=== PATIENT | female | born 1930 | race Asian ===

== ENCOUNTER 2019-08-02 03:47 | Inpatient (IN) | payer MEDICARE, OTHER ==
[~2019-08-02] VITALS: Ht 167.6 cm; Wt 55.6 kg
[2019-08-02] MEDS ORDERED: levoFLOXacin 750MG 150 ML IV ONE (05:45)
[2019-08-02] MEDS ORDERED: TETANUS-DIPTH-ACEL PERTUSSIS 0.5ML SYR Tdap IM ONE (06:00)
[2019-08-02] MEDS ORDERED: LIDOCAINE 2% (LOCAL ANESTH.) PF 5ml SDV ONE ×2 (06:03→06:06)
[2019-08-02] MEDS ORDERED: BACITRACIN TOP OINT 1 UD PKG TOP ONE (06:45)
[2019-08-02] MEDS ORDERED: LIDOCAINE 2%HCL (LOCAL ANESTH.) INJ 10ml MDV IJ ONE (06:45)
[2019-08-02 07:08] LABS: Basophils # (auto) 0 10 ^3/uL (0-0.2); Basophils % (auto) 0.2 % (0.0-2.0); Eosinophils # (auto) 0.1 10 ^3/uL (0-0.8); Eosinophils % (auto) 0.9 % (0.0-7.0); Hematocrit 28.5 % (36.0-46.0); Hemoglobin 9.5 g/dL (12.2-16.2); Lymphocytes # (auto) 0.3 10 ^3/uL (0.4-5.4); Lymphocytes % (auto) 2.9 % (10.0-50.0); Mean Corpuscular Hemoglobin 28.6 pg (28.0-32.0); Mean Corpuscular Hgb Conc. 33.4 g/dL (32.0-36.0); Mean Corpuscular Volume 85.8 fL (80.0-100.0); Monocytes # (auto) 0.3 10 ^3/uL (0-1.3); Neutrophils # (auto) 8.8 10 ^3/uL (1.6-8.6); Platelet Count (auto) 232 10^3/uL (140-450); Red Blood Cells 3.32 10^6/uL (4.0-5.20); Red Cell Distribution Width 16.1 % (11.8-14.3); White Blood Cell 9.5 10^3/uL (4.4-10.8)
[2019-08-02 07:17] LABS: INR 1.55 (0.9-1.15); Partial Thromboplastin Time 41.4 sec (23.64-32.05)
[2019-08-02 07:31] LABS: Calcium 7.5 mg/dL (8.5-10.1); Potassium 4.2 mmol/L (3.5-5.1)
[2019-08-02 07:33] LABS: BUN/Creatinine Ratio 32.6
[2019-08-02 07:36] LABS: Bilirubin, Total 0.2 mg/dL (0.2-1.0); Total Protein 6.7 g/dL (6.4-8.2)
[2019-08-02 08:20] LABS: Urine Bacteria NONE SEEN /hpf (None Seen); Urine Blood 1+ /uL (Negative); Urine Hyaline Cast FEW /lpf (0 - 2); Urine Mucus FEW (None Seen); Urine Specific Gravity 1.019 (1.001-1.035); Urine WBC 3 /hpf (0 - 5)
[2019-08-02] MEDS ORDERED: LACTULOSE 20Gm/30ML SOLN PO PRN (10:45)
[2019-08-02] MEDS ORDERED: cefTRIAXone 1GM/50ML D5W 50 ML IV ONE (10:45)
[2019-08-02] MEDS ORDERED: ALBUTEROL SULF 2.5 MG/0.5ML(0.5%) NEB SOLN NEB PRN (10:45)
[2019-08-02] MEDS ORDERED: phytonadione 10 MG in SODIUM CHL 0.9% 50 ML IV ONE (10:45)
[2019-08-02] MEDS ORDERED: ACETAMINOPHEN 500 MG TAB PO PRN (10:45)
[2019-08-02] MEDS ORDERED: OSELTAMIVIR 75 MG CAP PO ONE (10:45)
[2019-08-02] MEDS ORDERED: ONDANSETRON HCL 4 MG/2 ML VIAL IV PRN (10:45)
[2019-08-02] MEDS ORDERED: MORPHINE SULF INJ 2 MG/ML SYRINGE 1ML IV PRN ×2 (10:45)
[2019-08-02] MEDS ORDERED: NITROGLYCERIN 0.4 MG SL TAB SL PRN (10:45)
[2019-08-02] MEDS: SODIUM CHLORIDE 0.9% 1,000 ML IV SCH ×2 (11:15→18:41)
[2019-08-02 12:48] LABS: Free T3 1.05 pg/mL (2.3-4.2); Free T4 (Free Thyroxine) 0.59 ng/dL (0.89-1.76)
[2019-08-02 13:00] VITALS: BP 111/45
[2019-08-02] MEDS: ALBUTEROL SULF 2.5 MG/0.5ML(0.5%) NEB SOLN NEB SCH ×2 (13:12→19:11)
--- NOTE | 2019-08-02 13:15 | NUR ---
Telemetry admit from ER BHANU MCFARLANE admitted to Telemetry unit after SBAR received. Patient oriented to JUSTICE TAYLOR, RN primary RN, unit, room, bed, and unit policies regarding patient care and visiting hours. Patient now on continuous telemetry monitoring, tele box # 15 and telemetry reading on arrival to unit is SR. No S/S of distress or SOB or Pain. Bed in lowest and locked position with side rails up x2 and call light within reach. Patient weighed by bed scale and encouraged to call if they need something. All questions and concerns addressed, patient verbalized understanding.
--- NOTE | 2019-08-02 14:00 | NUR ---
PLACE OPTIFOAM ON LEFT BUTTOCK PRESSURE INJURY.
[2019-08-02 17:00] VITALS: BP 93/34
[2019-08-02 19:10] VITALS: BP 93/34
--- NOTE | 2019-08-02 19:10 | NUR ---
Received report from the Day Shift JOSELYN Brown. Initial assessment done. Pt. in bed resting with son @ the bedside. Pt. alert, awake, and oriented x 4. Pt. in Room Air, no s/s of sob/ dyspnea. Pt. denies any pain when assessed. Pt. adlib in bed and turn self, Provided privacy with son @ the bedside.
--- NOTE | 2019-08-02 19:39 | NUR ---
Pt. EKG is NSR - Nomal Sinus Rhythm @ 95/min. with BBB @ the monitor.
--- NOTE | 2019-08-02 20:00 | NUR ---
Assessment done and completed. Pt. in bed resting, with son @ the bedside. Provided pt. bedside nsg. care.
--- NOTE | 2019-08-02 20:30 | NUR ---
Assisted pt. to the BR. Pt. able to ambulate with assist to the BR. Pt. on fall precaution or high fall risk. Pt. returned to bed safely and keep warm and comfortable.
[2019-08-02] MEDS: FAMOTIDINE 20 MG TAB PO SCH (21:32)
--- NOTE | 2019-08-02 21:32 | NUR ---
Meds. as scheduled given or administered to the pt. Provided pt. health teachings about the use and indications of these meds. Pt. able to swallow or take whole pill.
[2019-08-02] MEDS: OSELTAMIVIR 30 MG CAP PO SCH (21:33)
[2019-08-02 22:20] VITALS: BP 100/39
--- NOTE | 2019-08-02 22:40 | NUR ---
Assisted pt. to the BR and returned to the bed safely with call-light within reach.
--- NOTE | 2019-08-02 22:53 | NUR ---
Lab. Personnel Sharad Garcia notified JOSELYN Rausch that pt. Blood Culture is Positive (+) for Gram Cocci in Chain. Will call the Hospital List.
[2019-08-02] MEDS ORDERED: VANCOMYCIN PER PHARMACY 0 MG IV SCH (23:15)
--- NOTE | 2019-08-02 23:15 | NUR ---
Called and notified Hospital List SENIOR CORPORATE STRATEGY MANAGER Danish Pandya about pt.' result for Blood Culture Positive (+) for Gram Cocci in Chain. ZULEIMA Pandya gave order of Vancomycin Per Pharmacy Dose.
[2019-08-03] MEDS ORDERED: VANCOMYCIN 1GM/250ML 250 ML IV ONE
--- NOTE | 2019-08-03 00:10 | NUR ---
Pt. sleeping after assisting pt. to the BR. Pt. still with IVF of NS running @ 125 mls./hr. Pt. SR with BBB @ the monitor.
--- NOTE | 2019-08-03 00:54 | NUR ---
Vancomycin Per Pharm Dose of 1 GM is given/administered IV @ this time due to Blood Culture Positive of Gram Cocci in Chains. Pt. made aware of the med. given. Pt. returned to sleep.
[2019-08-03] MEDS: ALBUTEROL SULF 2.5 MG/0.5ML(0.5%) NEB SOLN NEB SCH ×5 (01:07→23:43)
--- NOTE | 2019-08-03 02:00 | NUR ---
Pt. calm and sleeping. No s/s of acute change. IVF of NS @ 125 ml./hr continuous @ the RAC G # 20.
[2019-08-03] MEDS: SODIUM CHLORIDE 0.9% 1,000 ML IV SCH ×3 (02:42→20:15)
[2019-08-03 05:24] VITALS: BP 124/53
[2019-08-03 06:17] LABS: Basophils # (auto) 0 10 ^3/uL (0-0.2); Basophils % (auto) 0.2 % (0.0-2.0); Eosinophils # (auto) 0.1 10 ^3/uL (0-0.8); Eosinophils % (auto) 1.2 % (0.0-7.0); Hematocrit 25.9 % (36.0-46.0); Hemoglobin 8.6 g/dL (12.2-16.2); Lymphocytes # (auto) 0.6 10 ^3/uL (0.4-5.4); Lymphocytes % (auto) 11.7 % (10.0-50.0); Mean Corpuscular Hemoglobin 28.7 pg (28.0-32.0); Mean Corpuscular Hgb Conc. 33.2 g/dL (32.0-36.0); Mean Corpuscular Volume 86.4 fL (80.0-100.0); Monocytes # (auto) 0.7 10 ^3/uL (0-1.3); Monocytes % (auto) 11.9 % (0.0-12.0); Neutrophils # (auto) 4.2 10 ^3/uL (1.6-8.6); Platelet Count (auto) 208 10^3/uL (140-450); Red Cell Distribution Width 16.4 % (11.8-14.3); White Blood Cell 5.5 10^3/uL (4.4-10.8)
[2019-08-03 06:45] LABS: Albumin 1.7 g/dL (3.4-5.0); Calcium 7.6 mg/dL (8.5-10.1)
[2019-08-03 06:48] LABS: Bilirubin, Total 0.2 mg/dL (0.2-1.0)
[2019-08-03 06:49] LABS: INR 1.23 (0.9-1.15); Partial Thromboplastin Time 39.4 sec (23.64-32.05)
--- NOTE | 2019-08-03 08:00 | NUR ---
ASSESSMENT NOTE PT IS ALERT ORIENTED X4, WITH GENERALIS WEAKNESS, ABLE TO VERBALIS HER NEEDS, PT TEND TO LAY ON HER BACK AND NOT REPOSITIONING HER SELF, ASSISTED IN REPOSITIONING EVERY 2 HR AT ALL TIMES, PRESSURE ULCER NOTED AT LEFT BUTTOCK AREA, DRY SCAB NOTED ON THE RT KNEE, BED ALARM ACTIVATED, NEXT TO NURSING STATION, CALL LIGHT WITHIN REACH
[2019-08-03 08:46] VITALS: BP 115/48
[2019-08-03] MEDS: ASPirin 81 mg TAB PO SCH (09:25)
[2019-08-03] MEDS: OSELTAMIVIR 30 MG CAP PO SCH (09:25)
[2019-08-03] MEDS: cefTRIAXone 1GM/50ML D5W 50 ML IV SCH (09:25)
--- NOTE | 2019-08-03 10:00 | NUR ---
WOUND CARE NOTE: IN TO SEE PATIENT AT THIS TIME PER WOUND CARE CONSULT REQUEST. PATIENT ADMITTED TO [facility] WITH DIAGNOSIS OF S/P FALL, TIA, PNA. CURRENT TRUNG SCORE ASSESSED AT 15. PATIENT NOTED TO HAVE WOUNDS UPON ADMIT. WOUND PHOTOS TAKEN AT THAT TIME BY BEDSIDE NURSE FOR REFERENCE. PATIENT IS VERY THIN, WEIGHING ONLY 50.3 KG. PATIENT IS AMBULATORY WITH ASSIST/FALL RISK. SHE IS S/P FALL, WITH ABRASION TO RIGHT KNEE AND STAPLED LACERATION TO POSTERIOR HEAD. ABRASION TO THE R KNEE IS SCABBED CLOSED. LEFT BOTH OPEN TO AIR. 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 WOUND BED HAS YELLOW ADIPOSE TISSUE NOTED, WITH BRIGHT RED/PINK PERIWOUND. APPLIED THERAHONEY AND OPTIFOAM GENTLE SACRAL DRESSING TO WOUND. SPECIALTY AIR MATTRESS ORDERED AT THIS TIME. PATIENT TO BE PLACED, PENDING DELIVERY BY RENZO WADE. NO OTHER SKIN INTEGRITY ISSUES NOTED AT THIS TIME. RECOMMEND: FREQUENT TURN SCHEDULE Q 2 HOURS, PRN CONDITION PERMITS, WITH PRESSURE REDISTRIBUTION USING PILLOWS/WEDGES, DAILY/PRN DRESSING CHANGE TO WOUND ON LEFT BUTTOCK, SPECIALTY AIR MATTRESS, SKIN/WOUND CARE PLAN, DIETARY CONSULT, CONTINUED MONITORING BY WOUND CARE TEAM. Addendum: 08/03/19 at 1728 by Val Vivas RN Amended: Links added.
--- NOTE | 2019-08-03 10:00 | NUR ---
AT BED SIDE
[2019-08-03] MEDS: AZITHROMYCIN 500MG/ 250ML 250 ML IV SCH (10:33)
--- NOTE | 2019-08-03 11:30 | NUR ---
WOUND NURSE BILL AT BED SIDE WITH SKIN ASSESSMENT
--- NOTE | 2019-08-03 11:40 | NUR ---
WOUND ACRE LEFT BUTTOCK PRESSURE ULCER, CLEANE WELL WITH NS, PAT IT TO SVETA PEREZ HONEY APPLIED COVERED WITH OPTIFOAM, PT TOLERATED WELL
[2019-08-03 13:00] VITALS: BP 110/45
--- NOTE | 2019-08-03 13:30 | NUR ---
FAMILY PATIENT'S SON AT BED SIDE
--- NOTE | 2019-08-03 13:52 | NUR ---
DR TURPIN AT BED SIDE FOLLOWING UP ON PT
--- NOTE | 2019-08-03 14:17 | NUR ---
NUTRITION ASSESSMENT/CONSULT NOTES Please refer to link notes of nutrition screen form filed under the intervention section of the plan of care for further details. Est. Energy Needs: 8459-7562 kcal (30-35 kcal/kg BW). Est. Protein Needs: 71-89 gms/day (1.2-1.5 gms/kg IBW). Will continue to monitor pertinent labs and reassess nutrient need prn Addendum: 08/03/19 at [address] Amended: Links added.
[2019-08-03 16:47] VITALS: BP 116/48
--- NOTE | 2019-08-03 17:48 | NUR ---
PATIENT'S SON CONTINUE REAMINING AT BED SIDE AT ALL TIMES
--- NOTE | 2019-08-03 18:00 | NUR ---
SITTER AT BED SIDE
--- NOTE | 2019-08-03 19:30 | NUR ---
Received report from the Day RN. Zazueta. Initial assessment done. Pt. in bed resting, alert, awake, oriented x 4, with sitter @ the bedside, in Room Air, no s/s of sob or dyspnea. Pt. breathing symmetrical and unlabored, denies chest pain, on Tele # 15 , Sinus Rhythm to Sinus Tachycardia from 90's to low 100's Per minute. Pt. able to ambulate with minimal to mod. assist for safety to the BR with the help of the sitter @ the bedside. Pt. Left Buttock with Optifoam dsg. due to pressure sore and with Right knee scab, and presnec of swelling of both ankles and feet. Pt. adlib in bed and can ambulate to the BR with assist.
--- NOTE | 2019-08-03 19:32 | NUR ---
Pt. Sinus Rhythm when in bedrest around 90's/minute but Sinus tachycardia @ the low 100's per minute when ambulating with assist to the BR.
--- NOTE | 2019-08-03 19:39 | NUR ---
AIR MATTRESS DELIVERY AT BED SIDE WITH THE SITTER TO APPLY THE AIR MATTRESS
[2019-08-03 20:00] VITALS: BP 105/41
--- NOTE | 2019-08-03 20:00 | NUR ---
Assessment done and completed. Pt. with a sitter @ the bedside. RN. Rausch worked with the sitter @ the bedside to maintain pt. safety and comfort while providing pt. care. Pt. assisted to the BR when voiding with mod. assist. Pt. is on high fall risk s/p fall @ home before admission to the hospital. Pt. keep clean, safe and warm when returned to bed. Sitter continuously watching pt. safety @ the bedside.
[2019-08-03] MEDS: traMADol HCL 50 MG TAB PO PRN (20:17)
--- NOTE | 2019-08-03 20:17 | NUR ---
Pt. given Ultram or Tramadol 50 mg. po @ 2017 PM for moderate lower back pain of 5/10 scale, aching in nature. Pt. able has good swallowing reflex. HOB UP @ 45 degrees angle.
[2019-08-03 22:00] VITALS: BP 105/41
[2019-08-03] MEDS: FAMOTIDINE 20 MG TAB PO SCH (22:25)
--- NOTE | 2019-08-03 22:25 | NUR ---
Med. as scheduled given @ around this time. Pt. made aware of the use and benefits of the med. given before sleeping. IVF of NS coninuous @ the same rate of 125 ml./hr. attached to the RIGHT AC G # 20. IV access keep patent and intact. No s/s of IV infiltration.
--- NOTE | 2019-08-03 23:50 | NUR ---
Pt. calm and resting quietly, keep warm and comfortable in bed. NO s/s of pain or discomfort. Pt. keep watch and monitored for safety.
--- NOTE | 2019-08-04 02:00 | NUR ---
Pt. sleeping calmly. Sitter @ the bedside continuously watch pt. safety and assisting pt. to the BR when pt. voiding as needed. Keep pt. room tranquil and dim-lighted to facilitate rest/sleep. Pt. SR @ the monitor @ the 90's per minute.
[2019-08-04] MEDS: SODIUM CHLORIDE 0.9% 1,000 ML IV SCH ×4 (02:41→12:07)
--- NOTE | 2019-08-04 04:00 | NUR ---
Pt. assisted to the BR with the help of the RN and the sitter. Maintained pt. safety and returned to bed properly after BR/toileting needs done. Sitter @ the bedside. Pt. SR @ the monitor @ HR = 93/min or @ the 90's @ the monitor. Signed: 08/04/19 at 0445 by KVNG ARMANDO RN RN
[2019-08-04 05:00] VITALS: BP 131/52
[2019-08-04] MEDS ORDERED: SODIUM CHLORIDE 0.9 % NEB SOLN 3ML NEB ONE ×2 (05:15→09:36)
--- NOTE | 2019-08-04 06:00 | NUR ---
Pt. provided complete bedbath, provided assistance with activities of daily living and maintained safety with 1:1 sitter @ the bedside to assist pt. with bathroom needs. Continuously watch pt. safety and comfort with the help of the sitter. Pt. is generally weak and on high fall risk precaution. Assisted pt. back to her bed after BR. Pt. ST when ambulating @ the low 100's per minute and SR @ the 90's per minute when resting back to bed. Keep pt. clean, dry, safe, and toe closing machine tender bed with the sitter @ the bedside.
[2019-08-04] MEDS: ALBUTEROL SULF 2.5 MG/0.5ML(0.5%) NEB SOLN NEB SCH ×3 (06:18→19:13)
--- NOTE | 2019-08-04 07:50 | NUR ---
Patient in bed, awake, oriented x4. On fall precautions. Wounds with surgical geno noted on the head, left buttock area wound, knee scab noted. Bed alarm on. Sitter at bedside.
[2019-08-04 09:08] VITALS: BP 112/42
--- NOTE | 2019-08-04 09:30 | NUR ---
Maciel Granger at bedside. ordered Urine Bacterial Culture and Neurology Consult.
[2019-08-04] MEDS: ASPirin 81 mg TAB PO SCH (09:50)
[2019-08-04] MEDS: AZITHROMYCIN 500MG/ 250ML 250 ML IV SCH ×2 (09:51→12:07)
[2019-08-04] MEDS: cefTRIAXone 1GM/50ML D5W 50 ML IV SCH (09:52)
[2019-08-04] MEDS ORDERED: VANCOMYCIN 1GM/250ML 250 ML IV SCH (10:00)
[2019-08-04] MEDS ORDERED: AZITHROMYCIN 500MG/ 250ML 250 ML IV SCH (10:00)
--- NOTE | 2019-08-04 10:15 | NUR ---
and son at bedside. Sitter at bedside.
[2019-08-04] MEDS: VANCOMYCIN 1GM/250ML 250 ML IV SCH (10:46)
[2019-08-04 13:00] VITALS: BP 113/55
--- NOTE | 2019-08-04 13:12 | NUR ---
Son brought a tube of Salonpas with Lidocaine from home. Informed Maciel Granger MD ordered Not to apply it on the patient. Informed the son. Patient to return the Salonpas home. Sitter at bedside.
[2019-08-04 16:54] VITALS: BP 122/47
--- NOTE | 2019-08-04 19:15 | NUR ---
Received report from the Day RN. Delaney. Initial assessment done. Pt. in bed resting, alert, awake, oriented x 4, son @ the bedside, pt. in Room Air, no s/s of sob, pt. breathing symmetrical and unlabored. Denies pain @ this time. Sitter @ the bedside continuously monitor pt. safety. Pt. on high fall precaution. Still with IVF of NS @ 125 ml./hr. @ the RAC G # 20. Maintain pt. safety and keep warm and comfortable.
[2019-08-04] MEDS: FAMOTIDINE 20 MG TAB PO SCH (21:45)
--- NOTE | 2019-08-04 21:45 | NUR ---
Meds. as scheduled given. Pt. aware of the use/benefits of the med. given as scheduled. Pt. provided assistance with the activities of daily living. Maintained pt. safety and comfort. Sitter @ the bedside.
[2019-08-04] MEDS: traMADol HCL 50 MG TAB PO PRN (21:46)
--- NOTE | 2019-08-04 21:46 | NUR ---
Pt. given Ultram-Tramadol 1 tab. po. for lower back pain aching 5/10 scale @ 2146 PM.
[2019-08-04 22:00] VITALS: BP 110/53
--- NOTE | 2019-08-04 22:46 | NUR ---
Pt. ready to sleep now, assisted to the BR with the help of the sitter. Denies pain when returned to the bed. Pt. is ready to sleep and keep warm and comfortable.
[2019-08-05] MEDS: ALBUTEROL SULF 2.5 MG/0.5ML(0.5%) NEB SOLN NEB SCH ×4 (00:09→17:46)
--- NOTE | 2019-08-05 00:15 | NUR ---
Pt. quiet and resting. Denies pain and assisted with ADL"S @ the bedside. Pt. returned to sleep with 1:1 Sitter @ the bedside. SR- ST @ the low 100's per minute.
[2019-08-05] MEDS: SODIUM CHLORIDE 0.9% 1,000 ML IV SCH ×3 (02:00→16:02)
--- NOTE | 2019-08-05 02:00 | NUR ---
Pt. sleeping, in Room Air, no s/s of sob, SR-ST @ the monitor, sitter @ the bedside. RN worked with the sitter to assist pt.'s needs @ the bedside. Pt. returned to sleep.
--- NOTE | 2019-08-05 02:00 | NUR ---
Pt. sleeping, BIPAP continuous, no s/s of Sob, paced @ the monitor. Addendum: 08/05/19 at 0304 by KVNG ARMANDO RN RN Wrong Chart. Amend this chart.
--- NOTE | 2019-08-05 04:00 | NUR ---
Pt. scooted HOB UP and turned to the sides. Pt. returned to sleep. Pt. ST @ the low 100's with HR = 102/minute.
[2019-08-05 05:14] VITALS: BP 129/52
[2019-08-05] MEDS: VANCOMYCIN 1GM/250ML 250 ML IV SCH (05:19)
--- NOTE | 2019-08-05 05:19 | NUR ---
IV Vancomycin antibiotic 1 GM/250 mls. given. Pt. made aware of the antibiotic given.
--- NOTE | 2019-08-05 06:00 | NUR ---
Pt. resting and sleeping, sitter @ the bedside. Pt. denies pain when assessed @ this time. Keep pt. safe, warm and comfortable in bed. ST @ the monitor @ the low 100's per minute.
--- NOTE | 2019-08-05 07:30 | NUR ---
Patient in bed, asleep, no acute distress noted. Sitter at bedside.
--- NOTE | 2019-08-05 08:00 | NUR ---
Patient has wheezing noted. O2 Sat = 88% to 90% on room air. Placed on O2 at 2 LPM. O2 Sat = 97% on O2 via nasal cannula. Sitter at bedside.
--- NOTE | 2019-08-05 08:20 | NUR ---
New IV line started on the right AC, 22 gauge, intact and patent. Patient able to tolerate it.
[2019-08-05 09:00] VITALS: BP 128/61
--- NOTE | 2019-08-05 09:00 | NUR ---
and son at bedside.
[2019-08-05] MEDS: ASPirin 81 mg TAB PO SCH (09:40)
[2019-08-05] MEDS: cefTRIAXone 1GM/50ML D5W 50 ML IV SCH (09:40)
--- NOTE | 2019-08-05 10:00 | NUR ---
Maciel Granger at bedside. ordered Incentive Spirometry, physical therapy. MD made aware that Respiratory Therapist recommended Atrovent to be added to patient breathing treatment.
[2019-08-05] MEDS: AZITHROMYCIN 500MG/ 250ML 250 ML IV SCH (12:36)
--- NOTE | 2019-08-05 12:51 | NUR ---
Attempted PT eval. Pt does not want to participate in therapy at this time and would like to rest. Will attempt again.
[2019-08-05 13:00] VITALS: BP 106/46
[2019-08-05] MEDS: IPRATROPIUM BROM 0.5 MG/2.5ML INH SOL NEB SCH ×2 (13:26→17:46)
[2019-08-05] MEDS ORDERED: LORazepam 2MG/ML-1ML VIAL IV PRN (15:45)
--- NOTE | 2019-08-05 16:06 | NUR ---
Patient being assisted by sitter to walk to the bathroom. Heart rate >[address] monitor.
--- NOTE | 2019-08-05 16:48 | NUR ---
Paged the Respiratory Therapist for breathing treatment.
[2019-08-05 17:00] VITALS: BP 119/51
--- NOTE | 2019-08-05 19:30 | NUR ---
Pt. 02 sat. is 97 % in Room Air. Pt. feeling sob/dyspnea due to exertion from the BR activities. Pt. BRP with assist of the sitter. Pt. returned to bed immediately after experiencing sob @ the BR.
--- NOTE | 2019-08-05 19:30 | NUR ---
Received report from the DAY RN. Delaney. Initial Assessment done. Pt. in bed resting, alert, awake, oriented x 4 with son @ the bedside. Pt. in Room Air, experiencing sob after ambulating from the BR, called RT and pt. placed to bed safely with the help of the sitter. Pt. keep informed and instructed to keep calm and rest. Pt. Son @ the bedside, supportive to pt. care. Pt. IVF of NS running @ 125 mls./hr. @ the Right AC G # 22, patent and intact. Pt. on Tele # 15, SR @ the 90's @ the monitor. Denies pain but expressing sob.
--- NOTE | 2019-08-05 19:40 | NUR ---
RT worked with the RN. Pt. started on 02 @ 2L/NC to help relieve sob. Pt. is calm and resting now with 02 sat. of 98-100 %.
[2019-08-05] MEDS: FAMOTIDINE 20 MG TAB PO SCH (21:48)
--- NOTE | 2019-08-05 21:48 | NUR ---
Med. as scheduled given by Po. Pt. able to swallow med. without difficulty. Pt. getting ready to sleep. Sitter @ the bedside.
[2019-08-05 22:00] VITALS: BP 107/42
[2019-08-06] VITALS (7 sets, daily range): BP systolic 110–134; BP diastolic 47–66
--- NOTE | 2019-08-06 00:10 | NUR ---
Pt. sleeping and quiet. Keep pt. clean, dry, safe and all source intelligence technician bed. No s/s of pain or discomfort. Pt. SR @ 90's per minute @ the monitor.
[2019-08-06] MEDS: IPRATROPIUM BROM 0.5 MG/2.5ML INH SOL NEB SCH ×4 (00:26→19:08)
[2019-08-06] MEDS: ALBUTEROL SULF 2.5 MG/0.5ML(0.5%) NEB SOLN NEB SCH ×4 (00:26→19:08)
--- NOTE | 2019-08-06 00:26 | NUR ---
Respiratory Treatments such as Atrovent and Ventolin are given @ 0026 by the RT. Keep pt. HOB up @ 35-45 degrees angle, maintained on 02 @ 2L/NC continuously to provide proper oxygenation while pt. is experiencing mild sob.
[2019-08-06] MEDS: VANCOMYCIN 1GM/250ML 250 ML IV SCH (02:29)
--- NOTE | 2019-08-06 02:29 | NUR ---
Antibiotic Vancomycin 1 GM 250 mls. given IV @ this time. Pt. aware of the benefits of the IV antibiotic given.
[2019-08-06] MEDS: SODIUM CHLORIDE 0.9% 1,000 ML IV SCH (02:30)
--- NOTE | 2019-08-06 04:15 | NUR ---
Pt. provided partial bedbath, changed all bed linens, pilllow cases, gown and chux. Scooted HOB up and turned to the sides and HOB UP @ 40744 degrees angle. Pt. on 2L/NC continuous. See V/S as taken and recorded by the sitter @ the bedside. Pt. denies pain. Pt. @ the 90's @ the Tele when resting and greater 100's-120's when moving and ambulating from BR to the bed. Pt. with mild to mod. sob when exerting effort. Pt. repositioned comfortably to the bed after given partial bedbath.
--- NOTE | 2019-08-06 06:00 | NUR ---
Pt. resting and sleeping. Sitter @ the bedside starting the I & O.
[2019-08-06 07:05] LABS: Basophils # (auto) 0 10 ^3/uL (0-0.2); Basophils % (auto) 0.2 % (0.0-2.0); Eosinophils # (auto) 0 10 ^3/uL (0-0.8); Eosinophils % (auto) 0.2 % (0.0-7.0); Hematocrit 28.9 % (36.0-46.0); Hemoglobin 9.4 g/dL (12.2-16.2); Lymphocytes # (auto) 0.8 10 ^3/uL (0.4-5.4); Lymphocytes % (auto) 8.7 % (10.0-50.0); Mean Corpuscular Hemoglobin 28.2 pg (28.0-32.0); Mean Corpuscular Hgb Conc. 32.6 g/dL (32.0-36.0); Mean Corpuscular Volume 86.5 fL (80.0-100.0); Monocytes # (auto) 0.4 10 ^3/uL (0-1.3); Monocytes % (auto) 3.7 % (0.0-12.0); Neutrophils # (auto) 8.5 10 ^3/uL (1.6-8.6); Neutrophils % (auto) 87.2 % (37.0-80.0); Nucleated Red Blood Cells % 0.1 %; Platelet Count (auto) 197 10^3/uL (140-450); Red Blood Cells 3.34 10^6/uL (4.0-5.20); Red Cell Distribution Width 16.9 % (11.8-14.3); White Blood Cell 9.8 10^3/uL (4.4-10.8)
--- NOTE | 2019-08-06 07:05 | NUR ---
Called the Hospital List dr. Gottlieb and notified Dr. Gottlieb about pt.'s sob, wheezy lungs sounds, wet sounds of the lungs, pt. in 2L/NC continuous and the resp. treatment is not effective in getting rid of the wheezy sound as the RT informed RN. Notified dr. Gottlieb about the Ns continuous fluids and present v/s. Hosp. List dr. Gottlieb ordered to stop the IVf of NS and give lasix 40 mg. IV x 1 now. Orders noted and carried-out.
[2019-08-06 07:10] LABS: Anion Gap 8 (5-15); BUN/Creatinine Ratio 16.4; Blood Urea Nitrogen 11 mg/dL (7-18); Calcium 8.1 mg/dL (8.5-10.1); Carbon Dioxide 20 mmol/L (21-32); Chloride 106 mmol/L (98-107); GFR African American 107 mL/min; GFR Non-African American 88 mL/min; Glucose 179 mg/dL (74-106); Sodium 134 mmol/L (136-145)
[2019-08-06] MEDS ORDERED: FUROSEMIDE 40 MG/4 ML VIAL IV ONE (07:30)
--- NOTE | 2019-08-06 07:30 | NUR ---
Patient in bed asleep, on O2 at 2 LPM, no acute distress noted. Sitter at bedside.
--- NOTE | 2019-08-06 08:07 | NUR ---
BP = 126/47, Heart rate = 117, O2 Sat = 96% on O2 at 2 LPM via nasal cannula. Lasix Inj given as ordered.
[2019-08-06] MEDS: cefTRIAXone 1GM/50ML D5W 50 ML IV SCH (08:08)
--- NOTE | 2019-08-06 08:10 | NUR ---
Family at bedside. Sitter at bedside.
--- NOTE | 2019-08-06 08:20 | NUR ---
Removed the IV line on the right wrist, IV catheter intact, pressure dressing applied.
--- NOTE | 2019-08-06 09:10 | NUR ---
Opening Shift Note Assumed care of patient, awake, alert and oriented to self and place, unable to verbalize date and year. No S/S of distress/SOB or pain. Bed in lowest position, locked, two side rails raised, and call harding within reach. Sitter at bedside. Patient self turning and turned to right side with pillow under left side. Instructed on POC and to call for assist PRN, will continue to monitor for changes Q1hr and PRN. Addendum: 08/07/19 at 0233 by PILO GRIFFITH RN RN Entered wrong time. Assessment for opening shift note done at 1915 08/06/2019. Patient is on telemetry # 15 running sinus rhythm at 98 bpm.
[2019-08-06] MEDS: ASPirin 81 mg TAB PO SCH (10:40)
--- NOTE | 2019-08-06 10:43 | NUR ---
Paged the Respiratory Therapist for PRN breathing treatment
--- NOTE | 2019-08-06 11:28 | NUR ---
Maciel Granger at bedside. made aware patient has severe wheezing this morning, after one time Lasix Inj administered as ordered, wheezing improved. Dr. Rosales to put in new orders. Patient for possible discharge tomorrow, Tuesday.
[2019-08-06] MEDS ORDERED: CEFTRIAXONE SODIUM 2 GM in D5W 5% 50 ML IV ONE (11:30)
[2019-08-06] MEDS ORDERED: cefTRIAXone 1GM/50ML D5W 50 ML IV ONE ×2 (12:00)
--- NOTE | 2019-08-06 12:02 | NUR ---
PT AND FAMILY MEMBER REPORTS THAT PATIENT HAS WALKED TO RESTROOM SEVERAL TIMES THIS MORNING. ATTEMPT P.T. LATER TODAY.
--- NOTE | 2019-08-06 13:55 | NUR ---
Patient off unit for MRI Brain w/o contrast.
--- NOTE | 2019-08-06 18:00 | NUR ---
Patient in bed, no complaints of pain, O2 at 2 LPM, no acute distress noted. Son at bedside. Sitter at bedside.
--- NOTE | 2019-08-06 21:48 | NUR ---
MD Phan at the bedside.
[2019-08-06] MEDS: FAMOTIDINE 20 MG TAB PO SCH (22:16)
[2019-08-07] MEDS: ALBUTEROL SULF 2.5 MG/0.5ML(0.5%) NEB SOLN NEB SCH ×4 (00:26→19:51)
[2019-08-07] MEDS: IPRATROPIUM BROM 0.5 MG/2.5ML INH SOL NEB SCH ×4 (00:26→19:51)
--- NOTE | 2019-08-07 02:33 | NUR ---
Patient is up to restroom, gait assessed, patient ambulates well with assistance, gait unsteady. Patient back to bed and positioned to the left side. Patient denies any pain at this time. Patient still show periods of confusion at this time and is alert and oriented to self and verbalizes understanding that she is in the hospital but can not state which hospital she is at or what date it is. Will continue to orient patient PRN and will continue to monitor patient.
--- NOTE | 2019-08-07 08:02 | NUR ---
PER TONY PT TAKEN TO RADIOLOGY BY STAFF.
[2019-08-07 09:00] VITALS: BP 122/57
--- NOTE | 2019-08-07 09:30 | NUR ---
DR. SONG TALKS TO PATIENTS AND SON REGARDING RESULTS OF IMAGE TAKEN THIS AM. PT NEURO FUNCTION REMAINS AT BASELINE. EXPLAINS PT MAY BENEFIT FROM MONITORING AT A HIGHER LEVEL OF CARE. FAMILY AGREEABLE. PATIENT REMAINS PLEASANT, VERBALLY APPROPRIATE, FINE MOTOR FUNCTION INTACT.
[2019-08-07] MEDS: CEFTRIAXONE SODIUM 2 GM in D5W 5% 50 ML IV SCH (10:00)
[2019-08-07] MEDS: ASPirin 81 mg TAB PO SCH (10:00)
--- NOTE | 2019-08-07 10:08 | NUR ---
I faxed higher level of care order to [facility].
[2019-08-07] MEDS: FUROSEMIDE 20 MG TAB PO SCH (11:13)
--- NOTE | 2019-08-07 11:15 | NUR ---
PT REFUSED P.T. FAMILY PRESENT.
[2019-08-07 13:00] VITALS: BP 116/45
--- NOTE | 2019-08-07 13:08 | NUR ---
I called [facility] [phone] and spoke with Debra-she did say they have no beds available at this time. Provided her with contact information for Dr. Phan as well as the nurse's station. Faxed requested clinical information to [phone]. I called [facility], they have no beds available. I called [facility] and left message for charhouse worker asking about bed availability.
--- NOTE | 2019-08-07 13:10 | NUR ---
Called [facility] Admitting [phone]-no answer-will try again.
--- NOTE | 2019-08-07 13:12 | NUR ---
TOLERATES UP TO BR WITH ASSISTANCE, VOIDS. DR TURPIN ROUNDS. NEW ORDERS. CALL TO EEG DEPT. F/U ON EEG ORDERED.
[2019-08-07 16:42] VITALS: BP 119/55
--- NOTE | 2019-08-07 19:30 | NUR ---
Opening Shift Note Assumed care of patient, awake and alert. No S/S of distress/SOB or pain. Insructed on POC and to callfor assist PRN, will continue to monitor for changes Q1hr and PRN. Son at bedside. tanker service attendant at bedside. Fall and safety precautions in place. Call light within reach.
[2019-08-07] MEDS: FAMOTIDINE 20 MG TAB PO SCH (21:55)
[2019-08-07 22:00] VITALS: BP 110/48
--- NOTE | 2019-08-07 22:00 | NUR ---
IV insertion IV access obtained, via clean sterile technique by inserting 22 gauge catheter at RFA after first attempt. IV secured properly. No trauma to site. Patient tolerated well. IV removal IV DC'd with clean sterile technique, catheter fully intact. Pressure dressing applied to site. Patient tolerated well. NOTE: RAC 22g removed due to catheter being kinked
[2019-08-08] MEDS: IPRATROPIUM BROM 0.5 MG/2.5ML INH SOL NEB SCH ×4 (00:46→18:38)
[2019-08-08] MEDS: ALBUTEROL SULF 2.5 MG/0.5ML(0.5%) NEB SOLN NEB SCH ×4 (00:46→18:39)
[2019-08-08 05:00] VITALS: BP 120/57
--- NOTE | 2019-08-08 06:00 | NUR ---
WOUND CARE Optifoam changed to patient's sacrum and buttocks. Patient tolerated well, will continue to monitor
--- NOTE | 2019-08-08 09:00 | NUR ---
PLEASANT VERBALLY APPROPRIATE WHEN DR. SONG ROUNDS. DENIES DISCOMFORT. ORIENTED TO TIME DATE SITUATION HISTORY. BOTH AND SON ARE AT BEDSIDE. EXPRESSES DESIRE TO RETURN HOME. DISCUSSED PLANS FOR TRANSFER TO HIGHER LEVEL OF CARE WHILE RECOVERING DUE TO INCREASING SUBDURAL FLUID. ENCOURAGED TO WORK WITH PT. FAMILY HAS BROUGHT IN PJ TO PROVIDE GREATER MODESTY WHEN OOB. PT EXPRESSES AGREEMENT WITH PLANS TO AMBULATE.
--- NOTE | 2019-08-08 09:23 | NUR ---
I called [facility] Transfer [facility] and spoke with Jose E faxed requested clinical information-once received he will have someone give me a call. I called [facility] Transfer Center and spoke with Barbara, she said they have no beds available-she will call if one becomes available. I placed a call out to Dr. Phan to discuss the plan of care for the patient.
[2019-08-08] MEDS: CEFTRIAXONE SODIUM 2 GM in D5W 5% 50 ML IV SCH (10:30)
[2019-08-08] MEDS: ASPirin 81 mg TAB PO SCH (10:30)
[2019-08-08] MEDS: FUROSEMIDE 20 MG TAB PO SCH (10:30)
--- NOTE | 2019-08-08 10:31 | NUR ---
I called [facility] [phone] and spoke with Valerie in Admitting-faxed her requested clinical items to [phone].
[2019-08-08 13:00] VITALS: BP 93/51
--- NOTE | 2019-08-08 15:28 | NUR ---
assessment Patient is a 89 year old female who is very tired and wants me to speak with her who is at bedside. Per Teo prior to admission patient lived home with him and was independent. Per Teo patient has no DME. I informed Teo of patients transfer to higher level of care. Per Teo they both agree to transfer. I informed Teo he has a right to speak to a family welfare social work professor regarding all care. I informed Teo he has a right to participate in any and all discharge planning. Patient does not have a POA and advanced directive. I have offered patient and Teo information on POA and advanced directives. I informed the patient the advantages and benefits of having an Advanced Directive. Patient and Teo verbalized understanding and agreed to discharge plan of transfer. Addendum: 08/08/19 at 1533 by Olga SILVA Amended: Links added.
--- NOTE | 2019-08-08 15:44 | NUR ---
FAXED REQUESTED DOCUMENTS TO [facility]. PRIOR TO SON TAKING HIS FATHER HOME TO REST, PT DEMONSTRATES THE USE OF THE CALL LIGHT. REMINDED TO CALL FOR ANY NEEDS AND NOT TO TRY TO GET OOB WITHOUT ASSISTANCE.
--- NOTE | 2019-08-08 16:30 | NUR ---
Patient will be going to [facility] ([address] [place] [id number]) room 5129, nurse to call report to [phone]-accepting MD is Dr. Early. I called [facility] ([phone]) and spoke with Erica, set up pick remover time for 1730-faxed Medicare PCS form to [facility]. I relayed this information to nurse Solange. Addendum: 08/08/19 at 1633 by Cristina Rojo RN I called [facility] [phone] and spoke with Naila to let her know patient would be going to another facility.
[2019-08-08 17:02] VITALS: BP 115/50
--- NOTE | 2019-08-08 17:47 | NUR ---
REPORT CALLED TO KAYLEN AT [phone]. [facility] ASSIGNED TO ROOM 5129.
--- NOTE | 2019-08-08 19:00 | NUR ---
TRANSPORT ARRIVES FOR PT. REPORT OFF TO NOC RN. CALL TO RADIOLOGY FOR CD OF IMAGES. EXIT PICTURES TAKEN OF WOUNDS. HEAD,KNEE BUTTUCKS.
[2019-08-08 20:10] VITALS: BP 129/56
--- NOTE | 2019-08-08 20:15 | NUR ---
patient transferred to [facility] to doctor Md moreno. report given to nurse radha by flor connors . all paper work checked by dayshift drea connors and zinc furnace charger ciara. cd with imaging placed in transfer paperwork. discharge paper work on emar not done per zinc furnace charger paperwork can be done later due to transfer amr being here. All questions and concerns addressed discharge transfer paperwork information given. Patient and son verbalized understanding.no distress noted while being transferred. vs taken t 97.4, 129/56 bp heart rate 100 bpm, 94 02 saturation 18 rr. tele box removed and id bands removed.
== END 2019-08-08 20:15 | disposition short-term general hospital (02) | DRG 871 ==
LOC: EDBD 03:47 → ER 03:56 → TELE 03:57 → TELE-EAST 13:15
PROVIDERS: ADMIT Internal Medicine; ATTEND Family Medicine
PROC: 0HQ0XZZ Repair Scalp Skin, External Approach (ICD-10-PCS; principal; 2019-08-02)
DX: A41.9 Sepsis, unspecified organism (principal); G93.41 Metabolic encephalopathy; J18.9 Pneumonia, unspecified organism; N39.0 Urinary tract infection, site not specified; D68.9 Coagulation defect, unspecified; E46 Unspecified protein-calorie malnutrition; Z68.1 Body mass index [BMI] 19.9 or less, adult; S01.01XA Laceration without foreign body of scalp, initial encounter; R62.51 Failure to thrive (child); W18.39XA Other fall on same level, initial encounter; Y93.89 Activity, other specified; Y92.89 Other specified places as the place of occurrence of the external cause; Y99.8 Other external cause status; B95.4 Other streptococcus as the cause of diseases classified elsewhere; R29.6 Repeated falls; R62.7 Adult failure to thrive
CPT/HCPCS: 12002; 36415; 70450; 70551; 71045; 72125; 80048; 80053; 80202; 81001; 82550; 82565; 83880; 84439; 84443; 84481; 85025; 85610; 85730; 87040; 87077; 87086; 87186; 87804; 90471; 90715; 93005; 93306; 93886; 94640; 95819; 96365; 96366; 96367; 99152; G0378; G9035; J0696; J1956; J2001; J3430; J7060